=== PATIENT | male | born 1985 | race African-American/Black ===

== ENCOUNTER 2017-02-28 13:53 | Emergency (ER) | payer SELFPAY ==
--- NOTE | 2017-02-28 15:15 | RADIOLOGY REPORT (SQ) ---
EXAM DESCRIPTION: ANKLE LEFT COMPLETE COMPLETED DATE/TIME: 02/28/2017 3:08 pm REASON FOR STUDY: pain COMPARISON: None. NUMBER OF VIEWS: Three views. TECHNIQUE: AP, lateral, and oblique radiographic images acquired of the left ankle. LIMITATIONS: None. FINDINGS: MINERALIZATION: Normal. BONES: No acute fracture or dislocation. No worrisome bone lesions. JOINTS: No effusions. SOFT TISSUES: No soft tissue swelling. No foreign body. OTHER: No other significant finding. IMPRESSION: NEGATIVE STUDY OF THE LEFT ANKLE. NO RADIOGRAPHIC EVIDENCE OF ACUTE INJURY. TECHNICAL DOCUMENTATION: JOB ID: [id number] [employer]- All Rights Reserved
--- NOTE | 2017-02-28 15:16 | RADIOLOGY REPORT (SQ) ---
EXAM DESCRIPTION: FOOT LEFT COMPLETE COMPLETED DATE/TIME: 02/28/2017 3:08 pm REASON FOR STUDY: pain COMPARISON: None. NUMBER OF VIEWS: Three views. TECHNIQUE: AP, lateral and oblique radiographic images acquired of the left foot. LIMITATIONS: None. FINDINGS: MINERALIZATION: Normal. BONES: No acute fracture or dislocation. No worrisome bone lesions. JOINTS: No effusions. SOFT TISSUES: No soft tissue swelling. No foreign body. OTHER: No other significant finding. IMPRESSION: NEGATIVE STUDY OF THE LEFT FOOT. NO RADIOGRAPHIC EVIDENCE OF ACUTE INJURY. TECHNICAL DOCUMENTATION: JOB ID: [id number] [employer]- All Rights Reserved
[2017-02-28] MEDS ORDERED: IBUPROFEN 800 MG TABLET PO ONE (15:26)
--- NOTE | 2017-02-28 15:27 | ER Document Report ---
HPI - HPI Patient complains to provider of: foot injury Pain Level: 5 Context: Patient is a 31-year-old male who presents emergency department complaining of left heel pain. Patient states that he was playing football yesterday when he felt something pop in the back of his foot. He states he is able to flex and extend his foot he is able to walk on his tiptoes but he still has pain in the back of his heel. He denies any swelling, bruising at the site. Has been taking Motrin at home - REPRODUCTIVE Reproductive: DENIES: : Past Medical History - Social History Smoking Status: Smoker,Current Status Unk Family History: Reviewed & Not Pertinent Past Surgical History: Reports: Hx Tonsillectomy - Immunizations Hx Diphtheria, Pertussis, Tetanus Vaccination: Yes - UNKNOWN Vertical Provider Document - CONSTITUTIONAL Agree With Documented VS: Yes Notes: PHYSICAL EXAM GENERAL: Alert, interacts well. EXTREMITIES: Left foot without any evidence of edema, ecchymosis, tenderness at the knee. Patient able to flex and extend his foot no tenderness of malleolus, negative for metatarsal compression for pain. Capillary refill less than 2 seconds in all lower extremity digits. Moves all 4 extremities spontaneously. No edema, dorsalis pedis pulses 2/4 bilaterally. No cyanosis. NEUROLOGICAL: Alert and oriented x4. Normal speech. PSYCH: Normal affect, normal mood. SKIN: Warm, dry, normal turgor. No rashes or lesions noted. - INFECTION CONTROL TRAVEL OUTSIDE OF THE [place] IN LAST 30 DAYS: No - RESPIRATORY O2 Sat by Pulse Oximetry: 97 Course - Re-evaluation Re-evalutation: 02/28/17 15:26 Patient is a 31-year-old male who presents with ankle injury. On exam there is no concern for Achilles tendon rupture. Patient has full range of motion and tendon is intact to palpation on exam. No surrounding effusion at the insertion point. No evidence of a septic joint, gout flare, dislocation, or fracture on exam and imaging. Vitals wnl. At this time, I do not see an indication for labs or further imaging. Will discharge with conservative measures, return precautions, and follow-up recommendations. - Vital Signs Vital signs: Temp Pulse Resp BP Pulse Ox 98.7 F 91 18 124/79 97 02/28/17 14:01 02/28/17 14:01 02/28/17 14:01 02/28/17 14:01 02/28/17 14:01 - Diagnostic Test Radiology reviewed: Image reviewed, Reports reviewed Discharge - Discharge Clinical Impression: Foot injury Qualifiers: Encounter type: initial encounter Laterality: left Qualified Code(s): S99.922A - Unspecified injury of left foot, initial encounter Condition: Good Disposition: HOME, SELF-CARE Instructions: Use of Crutches ([facility]), Use of Kavp-Ffu-Yslnipy Ibuprofen ([facility]), Ice & Elevation ([facility]), Muscle Strain ([facility])
[2017-02-28 15:46] VITALS: BP 121/69
== END 2017-02-28 15:46 | disposition home or self-care (01) ==
LOC: ER 13:53
DX: S99.922A Unspecified injury of left foot, initial encounter (principal); X58.XXXA Exposure to other specified factors, initial encounter
CPT/HCPCS: 99283

== ENCOUNTER 2017-06-29 10:36 | Emergency (ER) | payer SELFPAY ==
[2017-06-29 10:44] VITALS: BP 151/87
[2017-06-29] MEDS ORDERED: TETRACAINE HCL 0.5% OPH SOLN 2 ML OD ONE (10:49)
--- NOTE | 2017-06-29 10:52 | ER Document Report ---
ED Medical Screen (RME) - General Chief Complaint: Headache Stated Complaint: HEADACHE, EYE PAIN Time Seen by Provider: 06/29/17 10:49 Notes: RME DISCLOSURE I have seen this patient as part of a Rapid Medical Evaluation and, if applicable, placed any initially appropriate orders. The patient will be seen and fully evaluated, including a full history and physical exam, by a provider ( in Main ED or Fast Track) when a room becomes available. 31-year-old male here with complaints of severe right eye pain ongoing for the past 2 days. He has had redness as well as watery discharge. He has tried using ibuprofen and eyedrops with minimal relief. Eye pain is worse with exposure to light. He denies any sick contacts. He denies any prior history of herpes. He does not know if he may have gotten anything into the eye. TRAVEL OUTSIDE OF THE [place] IN LAST 30 DAYS: No - Related Data Allergies/Adverse Reactions: No Known Allergies Allergy (Verified 02/28/17 14:01) Past Medical History Past Surgical History: Reports: Hx Tonsillectomy - Immunizations Hx Diphtheria, Pertussis, Tetanus Vaccination: Yes - UNKNOWN Physical Exam - Vital signs Vitals: Temp Pulse Resp BP Pulse Ox 99.1 F 80 20 151/87 H 98 06/29/17 10:43 06/29/17 10:43 06/29/17 10:43 06/29/17 10:43 06/29/17 10:43 Course - Vital Signs Vital signs: Temp Pulse Resp BP Pulse Ox 99.1 F 80 20 151/87 H 98 06/29/17 10:43 06/29/17 10:43 06/29/17 10:43 06/29/17 10:43 06/29/17 10:43
--- NOTE | 2017-06-29 11:31 | ER Document Report ---
ED Eye Complaint - General Chief Complaint: Headache Stated Complaint: HEADACHE, EYE PAIN Time Seen by Provider: 06/29/17 10:49 Mode of Arrival: Ambulatory Information source: Patient TRAVEL OUTSIDE OF THE [place] IN LAST 30 DAYS: No - HPI Patient complains to provider of: right eye pain Eye location: Right Injury: No Notes: Patient is here with complaints of right eye pain. He states that 2 days ago he said he got something in his eyes he had some mild irritation. Seem to be somewhat better yesterday and then when he woke up this morning his eye was red and painful. He states that light makes the eye hurt significantly worse. He denies any specific traumatic injury. He denies any drainage other than tearing. He denies any blurred or loss vision. He denies any nausea, vomiting , diarrhea. Light makes the pain worse, nothing makes it better. He denies any numbness, tingling, weakness. No fever. He does not wear contacts. States that the pain is causing him to have a headache. He denies any chest pain or shortness of breath. He has no other complaints at this time. - Related Data Allergies/Adverse Reactions: No Known Allergies Allergy (Verified 02/28/17 14:01) Past Medical History - Social History Smoking Status: Current Every Day Smoker Chew tobacco use (# tins/day): No Frequency of alcohol use: Social Drug Abuse: None Family History: Reviewed & Not Pertinent Patient has suicidal ideation: No Patient has homicidal ideation: No Renal/ Medical History: Denies: Hx Peritoneal Dialysis Past Surgical History: Reports: Hx Tonsillectomy - Immunizations Hx Diphtheria, Pertussis, Tetanus Vaccination: Yes - UNKNOWN Review of Systems - Review of Systems -: Yes All other systems reviewed and negative Physical Exam - Vital signs Vitals: Temp Pulse Resp BP Pulse Ox 99.1 F 80 20 151/87 H 98 06/29/17 10:43 06/29/17 10:43 06/29/17 10:43 06/29/17 10:43 06/29/17 10:43 - Notes Notes: GENERAL: alert, cooperative, nontoxic, no distress. HEAD: normocephalic, atraumatic EYES: Right eye with conjunctival injection. Pupils are equal round react to light bilaterally. Photophobia in the right eye. No foreign body seen. Upper lid everted with no foreign body. Fluoracein staining shows no corneal abrasions, dendritic lesions, with a negative Comse sign. Benedict-Pen shows intraocular pressure of 22 in the right eye. Visual acuity was a attained, see nursing notes for visual acuity. EARS: no external swelling, no external redness NOSE: atraumatic, no external swelling MOUTH/THROAT: mucous membranes moist and pink NECK: soft, supple, full range of motion, no meningismus. CHEST: no distress, lungs clear and equal throughout. No wheezing, rales, rhonchi. CARDIAC: regular rate and rhythm, no murmur, normal capillary refill, normal pulses. BACK: full range of motion, no CVA tenderness. EXTREMITIES: full range of motion of all extremities. No redness, no swelling. NEURO: alert and oriented 3, no focal deficits, full range of motion of all extremities. PYSCH: appropriate mood, affect. Patient is cooperative. SKIN: pink, warm, dry, no rash. - HEENT Visual acuity- Right eye: 20/40 Visual acuity- Left eye: 20/20 Visual acuity- Both eyes: 20/25 Corrective lenses worn: No Course - Re-evaluation Re-evalutation: 06/29/17 11:31 The patient is nontoxic appearing with stable vitals. He is here with complaints of right eye pain. This started 2 days ago when he felt like there was something in his eye. Yesterday the eye seemed to be better, today he woke up with redness and photophobia. No blurred or loss vision. See visual acuity in nursing notes. Eye exam shows conjunctival injection with no drainage, no dendritic lesions, no abrasions, no foreign bodies. Intraocular pressure is normal at 22. Patient will be discharged home with Polytrim as well as dilating drops with a referral to ophthalmology for iritis. Follow-up with ophthalmology at the next available appointment. Follow-up sooner for worsening pain, high fever, persistent vomiting, blurred or loss vision, or for any further concerns. The patient is noted to have elevated blood pressure during today's emergency department visit. The patient was informed of this finding. The patient was instructed that this may be related to pre-hypertension and requires further evaluation with a primary care provider. The patient has no hypertensive symptoms at this time. The patient's emergency department workup and current diagnosis were explained to the patient and or family. Follow-up instructions were provided. Medications if prescribed were discussed. Instructions for when to return to the emergency department including specific worrisome symptoms were discussed with the patient and/or family. - Vital Signs Vital signs: Temp Pulse Resp BP Pulse Ox 99.1 F 80 20 151/87 H 98 06/29/17 10:43 06/29/17 10:43 06/29/17 10:43 06/29/17 10:43 06/29/17 10:43 Discharge - Discharge Clinical Impression: Iritis of right eye Condition: Stable Disposition: HOME, SELF-CARE Instructions: Iritis ([facility]) Additional Instructions: Use eyedrops as prescribed. Follow-up with ophthalmology at the next available appointment. Follow-up sooner for worsening symptoms, high fever, loss of vision, severe headache, or for any further concerns. Your blood pressure was elevated during today's visit. Have this rechecked with your doctor. Prescriptions: Cyclopentolate HCl [Cyclogyl 1% Drops] 2 drop OP ONCE PRN #1 bottle PRN Reason: Polymyxin B Sulfate/Tmp [Polytrim Oph Soln 10 ml] 2 drop OP Q6H #1 bottle Forms: Elevated Blood Pressure, Smoking Cessation Education Referrals: [facility] [Provider Group] - Follow up as needed RIO CRANDALL OT [OPTHALMIC SUPERVISOR LOCOMOTIVE] - Follow up as needed RAKAN GURROLA DO [ACTIVE STAFF] - Follow up as needed JOELLEN DIANA MD [NO LOCAL MD] - Follow up as needed LARY ELIZONDO MD [NO LOCAL MD] - Follow up as needed LORENA THAKKAR MD [CONSULTING STAFF] - Follow up as needed LATOYA DIGGS MD [CONSULTING STAFF] - Follow up as needed
== END 2017-06-29 11:43 | disposition home or self-care (01) ==
LOC: ER 10:36
DX: H20.9 Unspecified iridocyclitis (principal); H53.141 Visual discomfort, right eye; F17.200 Nicotine dependence, unspecified, uncomplicated; R03.0 Elevated blood-pressure reading, without diagnosis of hypertension
CPT/HCPCS: 99283

== ENCOUNTER 2018-01-19 18:33 | Emergency (ER) | payer SELFPAY ==
[2018-01-19 18:49] VITALS: BP 146/86
--- NOTE | 2018-01-19 19:43 | ER Document Report ---
HPI - HPI Pain Level: Denies Notes: Patient is a 32-year-old male with no significant past medical history who presents to the ED for suture removal status post placement 2 weeks ago by [facility]. Patient states he punched through glass by accident and cut up his right forearm. Patient states that over the last day he has noticed redness and irritation at the site of the sutures with some purulence. Denies any drug allergies or IV drug use. No history of MRSA. Denies any headache, fever, URI, sore throat, chest pain, palpitations, syncope, cough, shortness of breath, wheeze, dyspnea, abdominal pain, nausea/vomiting/diarrhea, urinary retention, dysuria, hematuria, or rash. - ROS Systems Reviewed and Negative: Yes All other systems reviewed and negative - CONSTITUTIONAL Constitutional: DENIES: Fever, Chills - EENT EENT: DENIES: Sore Throat, Ear Pain, Eye problems - NEURO Neurology: DENIES: Headache, Weakness, Vision blurred, Dizzinesss / Vertigo - CARDIOVASCULAR Cardiovascular: DENIES: Chest pain - RESPIRATORY Respiratory: DENIES: Trouble Breathing, Coughing - GASTROINTESTINAL Gastrointestinal: DENIES: Abdominal Pain, Black / Bloody Stools - URINARY Urinary: DENIES: Dysuria, Urgency, Frequency - REPRODUCTIVE Reproductive: DENIES: : - MUSCULOSKELETAL Musculoskeletal: DENIES: Extremity pain Past Medical History - Social History Smoking Status: Current Every Day Smoker Chew tobacco use (# tins/day): No Frequency of alcohol use: Occasional Drug Abuse: Marijuana Family History: Reviewed & Not Pertinent Patient has suicidal ideation: No Patient has homicidal ideation: No Renal/ Medical History: Denies: Hx Peritoneal Dialysis Past Surgical History: Reports: Hx Tonsillectomy - Immunizations Hx Diphtheria, Pertussis, Tetanus Vaccination: Yes - UNKNOWN Vertical Provider Document - CONSTITUTIONAL Agree With Documented VS: Yes Notes: PHYSICAL EXAMINATION: GENERAL: Well-appearing, well-nourished and in no acute distress. LUNGS: Breath sounds clear to auscultation bilaterally and equal. No wheezes rales or rhonchi. HEART: Regular rate and rhythm without murmurs, rubs, gallops. Musculoskeletal: Rt UE: FROM to passive/active. Strength 5+/5. N/V intact distal. Extremities: No cyanosis, clubbing, or edema b/l. Peripheral pulses 2+. Capillary refill less than 3 seconds. NEUROLOGICAL: Cranial nerves grossly intact. Normal speech, normal gait. Normal sensory, motor exams PSYCH: Normal mood, normal affect. SKIN: Rt forearm: there are approx [address] There is site erythema at 3-4 sutures sites laterally with scant purulence expressed. No obvious wound dehiscence. No other abscess or fluctuance noted. No streaks. - INFECTION CONTROL TRAVEL OUTSIDE OF THE [place] IN LAST 30 DAYS: No Course - Re-evaluation Re-evalutation: 01/19/18 19:39 Patient is an afebrile, well-hydrated, 32-year-old male who presents to the ED for suture removal and noted wound infection. Vitals are acceptable without any significant tachycardia, tachypnea, or hypoxia. PE is otherwise unremarkable. Wound culture was obtained. There is no evidence of an abscess that warrants incision and drainage at this time. No evidence of wound dehiscence. Sutures were removed. Arm was thoroughly cleansed and wound dressing placed. Wound instructions reviewed. I will send him home with a prescription for Keflex and Bactrim. Recheck with your PCM in 2-3 days. Return to the ED with any worsening/concerning symptoms otherwise as reviewed in discharge. Patient is in agreement. - Vital Signs Vital signs: Temp Pulse Resp BP Pulse Ox 98.0 F 80 18 146/86 H 100 01/19/18 18:47 01/19/18 18:47 01/19/18 18:47 01/19/18 18:47 01/19/18 18:47 Discharge - Discharge Clinical Impression: Visit for suture removal, Wound infection Condition: Stable Disposition: HOME, SELF-CARE Additional Instructions: Keep the skin clean Wash with soap and water Tylenol/ibuprofen if needed Triple antibiotic ointment daily Take medication as directed Monitor for any worsening symptoms Recheck with your PCM in 2-3 days Return to the ED with any worsening symptoms and/or development of fever, headache, chest pain, palpitations, syncope, shortness of breath, trouble breathing, abdominal pain, n/v/d, abscess, purulent discharge, red streaks, worsening swelling, or other worsening symptoms that are concerning to you. Prescriptions: Cephalexin Monohydrate [Keflex 500 mg Capsule] 500 mg PO TID #30 capsule Sulfamethoxazole/Trimethoprim [Bactrim Ds Tablet] 1 each PO BID #20 tablet Forms: Elevated Blood Pressure, Smoking Cessation Education Referrals: [facility] [Provider Group] - Follow up as needed
== END 2018-01-19 19:54 | disposition home or self-care (01) ==
LOC: ER 18:33
DX: S51.811D Laceration without foreign body of right forearm, subsequent encounter (principal); T81.49XA Infection following a procedure, other surgical site, initial encounter; L08.9 Local infection of the skin and subcutaneous tissue, unspecified; W25.XXXD Contact with sharp glass, subsequent encounter
CPT/HCPCS: 87070; 87077; 87186; 87205

== ENCOUNTER 2018-09-09 14:54 | Emergency (ER) | payer OTHER ==
[2018-09-09] MEDS ORDERED: KETOROLAC TROMETHAMINE 60 MG/2 ML SDV IM ONE (15:44)
[2018-09-09] MEDS ORDERED: LIDOCAINE 5% (700 MG) TRANSDERMAL ADH..PATCH TP ONE (15:45)
[2018-09-09] MEDS ORDERED: METHOCARBAMOL 750 MG TABLET PO ONE (15:45)
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
[2018-09-09 17:02] VITALS: BP 175/66
== END 2018-09-09 17:08 | disposition home or self-care (01) ==
LOC: ER 14:54
DX: M54.5 Low back pain (principal); M54.2 Cervicalgia; M25.552 Pain in left hip; M25.562 Pain in left knee; M25.572 Pain in left ankle and joints of left foot; M79.18 Myalgia, other site; V49.40XA Driver injured in collision with unspecified motor vehicles in traffic accident, initial encounter; F17.200 Nicotine dependence, unspecified, uncomplicated; R25.2 Cramp and spasm
CPT/HCPCS: 99283; 96372; 73610; 73564; 72170; J1885; J3490

== ENCOUNTER 2019-05-12 10:32 | Emergency (ER) | payer OTHER ==
--- NOTE | 2019-05-12 12:27 | ER Document Report ---
HPI - HPI Time Seen by Provider: 05/12/19 12:19 Pain Level: 2 Context: CHIEF COMPLAINT: Flu symptoms HPI: 33-year-old male presenting to the emergency department for evaluation and a work note. Patient states that 5 days ago he developed flulike symptoms with nausea vomiting, fevers, diarrhea. Patient is also had nasal congestion and cough. Patient states that today the nausea is improved he is able to keep fluids down. He states he still has a slight cough and congestion. No abdominal pain. No shortness of breath. ROS: See HPI - all other systems were reviewed and are otherwise negative Constitutional: no fever Eyes: no drainage, no blurred vision ENT: Positive runny nose, no sore throat Cardiovascular: no chest pain Resp: no SOB, positive cough GI: Positive vomiting, positive diarrhea, no abdominal pain : no dysuria Integumentary: no rash Allergy: no hives Musculoskeletal: no extremity pain or swelling Neurological: no numbness/tingling, no weakness MEDICATIONS: I agree with the patient medications as charted by the RN. ALLERGIES: I agree with the allergies as charted by the RN. PAST MEDICAL HISTORY/PAST SURGICAL HISTORY: Reviewed and agree as charted by RN. SOCIAL HISTORY: Reviewed and agree as charted by RN. FAMILY HISTORY: No significant familial comorbid conditions directly related to patient complaint EXAM: Reviewed vital signs as charted by RN. CONSTITUTIONAL: Alert and oriented and responds appropriately to questions. Well-appearing; well-nourished, mild distress secondary to cough HEAD: Normocephalic; atraumatic EYES: PERRL; Conjunctivae clear, sclerae non-icteric ENT: normal nose; positive clear rhinorrhea; moist mucous membranes; pharynx without lesions noted, no uvula edema or deviation, no tonsillar hypertrophy, phonation normal NECK: Supple without meningismus; non-tender; no cervical lymphadenopathy, no masses CARD: RRR; no murmurs, no clicks, no rubs, no gallops; symmetric distal pulses RESP: Normal chest excursion without splinting or tachypnea; breath sounds clear and equal bilaterally; no wheezes, no rhonchi, no rales, pulse oximetry 98% on room air not hypoxic ABD/GI: Normal bowel sounds; non-distended; soft, non-tender, no rebound, no guarding; no palpable organomegaly or masses. BACK: The back appears normal and is non-tender to palpation, there is no CVA tenderness EXT: Normal ROM in all joints; non-tender to palpation; no cyanosis, no effusions, no edema SKIN: Normal color for age and race; warm; dry; good turgor; no acute lesions noted NEURO: Moves all extremities equally; Motor and sensory function intact PSYCH: The patient's mood and manner are appropriate. Grooming and personal hygiene are appropriate. MDM: 33-year-old male presenting essentially for work note, had flulike symptoms with vomiting diarrhea cough over the last several days with fevers no fever in the last 24 hours no abdominal pain on exam. Lung sounds are clear to auscultation he is not hypoxic low suspicion for pneumonia at this time. Symptomatic treatment, push fluids at home. Follow-up PCP. Will give work note for today. - REPRODUCTIVE Reproductive: DENIES: : Past Medical History - Social History Smoking Status: Current Every Day Smoker Frequency of alcohol use: Occasional Drug Abuse: Marijuana Family History: Reviewed & Not Pertinent Patient has suicidal ideation: No Patient has homicidal ideation: No Renal/ Medical History: Denies: Hx Peritoneal Dialysis Past Surgical History: Reports: Hx Tonsillectomy - Immunizations Hx Diphtheria, Pertussis, Tetanus Vaccination: Yes - UNKNOWN Vertical Provider Document - INFECTION CONTROL TRAVEL OUTSIDE OF THE [place] IN LAST 30 DAYS: No Course - Vital Signs Vital signs: Temp Pulse Resp BP Pulse Ox 98.6 F 72 17 136/75 H 98 05/12/19 12:06 05/12/19 12:06 05/12/19 12:06 05/12/19 12:06 05/12/19 12:06 Discharge - Discharge Clinical Impression: Influenza-like illness, Vomiting and diarrhea, Cough Condition: Stable Disposition: HOME, SELF-CARE Instructions: Nausea or Vomiting, Nonspecific ([facility]) Additional Instructions: Continue to push fluids at home. Motrin or Tylenol for fever or body ache. Follow-up with primary care provider for reevaluation call for appointment Forms: Return to Work Referrals: MARYCARMEN BRAND MD [ACTIVE STAFF] - Follow up as needed
[2019-05-12 12:52] VITALS: BP 134/86
== END 2019-05-12 12:52 | disposition home or self-care (01) ==
LOC: ER 10:32
DX: J11.1 Influenza due to unidentified influenza virus with other respiratory manifestations (principal); R11.2 Nausea with vomiting, unspecified; R19.7 Diarrhea, unspecified; R05 Cough; R50.9 Fever, unspecified; R09.81 Nasal congestion; R09.89 Other specified symptoms and signs involving the circulatory and respiratory systems; F17.200 Nicotine dependence, unspecified, uncomplicated
CPT/HCPCS: 99283